=== PATIENT | female | born 2005 | race American Indian/Alaskan Native ===

== ENCOUNTER 2024-07-04 14:33 | Emergency (ER) | payer MEDICAID, SELFPAY ==
[2024-07-04 14:47] VITALS: BP 118/74; PULSE 118; RESP 20; TEMP 36.8; O2SAT 98
--- NOTE | 2024-07-04 14:55 | XR_ITS ---
Examination: Complete OB ultrasound greater than 14 weeks Date and time of exam: July 04, 2024 1516 hrs. Indications: Nausea vomiting beginning one week ago Findings: Viable intrauterine single fetus with single amniotic sac presentation cephalic Cardiac motion 145 BPM Placenta anterior grade 0 Umbilical cord insertion seen Amniotic fluid index 16.3 cm Cervix 2.7 cm Ovaries obscured by bowel gas. Composite estimated gestational age based on BPD, head circumference, abdominal circumference, femur length is 26 weeks 4 days Estimated weight 941 g. Survey of intracranial anatomy, spinal anatomy, abdominal anatomy, four-chamber heart performed with no abnormalities identified. Impression: Viable intrauterine gestation cephalic presentation.
[2024-07-04 15:09] LABS: Collection Type, Urine Clean Catch
--- NOTE | 2024-07-04 15:12 | EDNOTE_ITS ---
<Statement entered by Katherine Tyalor MD - 07/05/24 17:07> As co-signing physician, I was present and available for consult prn. I concur with the plan and care as documented by the midlevel provider. ED General RME/HPI General Chief complaint: Nausea/Vomiting/Diarrhea Stated complaint: N/V, CHILLS, SUICIDAL THOUGHTS Time Seen by Provider: 07/04/24 15:11 Arrival date/time: 07/04/24 14:33 CC: Nausea, nasal congestion, thoughts of harming self HPI patient is 6 months G2, P1 who is had persistent nausea with intermittent vomiting as well as nasal congestion. Patient states that she cannot handle it when she is nauseated and cannot sleep because she cannot breathe at night. Patient denies fever vaginal discharge vaginal bleeding, low back pain, low abdominal cramping. Related Data Previous Rx's ?Medication ?Instructions ?Recorded cetirizine 10 mg capsule 10 mg PO HS #10 caps 07/04/24 ondansetron 4 mg disintegrating 4 mg PO Q8H #10 tabs 07/04/24 tablet Allergies Allergy/AdvReac Type Severity Reaction Status Date / Time No Known Allergies Allergy Verified 01/11/23 14:39 Review of Systems Review of Systems Narrative Review of Systems: GEN: No fever, no chills, no weight loss EYES: No discharge, no visual changes, no pain HEENT: No ear pain, no congestion, no sore throat PULM: No shortness of breath, no cough, + congestion CV: No chest pain, no dyspnea on exertion, no palpitations GI: No nausea, no vomiting, no diarrhea, no pain, no constipation : No frequency, no urgency, no dysuria MUSC/SKEL: No joint pain, no back pain SKIN: No rash PSYCH: No hallucinations, no depression, +SI HEME/LYMPH: No easy bleeding or bruising tendencies NEURO: No weakness, no headache Past Medical History Past Medical History NEUROLOGIC: Negative Neurological Disorders CARDIAC: Negative Cardiac Disorders or Congestive Heart Failure RESPIRATORY: Negative Chronic Obstructive Pulmonary Disease (COPD) or Asthma GASTROINTESTINAL: Negative Gastrointestinal Disorders, Hepatitis or Colorectal Cancer GENITOURINARY: Negative Genitourinary Disorders, Renal Disease or Prostate Cancer REPRODUCTIVE: Negative Breast Cancer or Testicular Cancer MUSCULOSKELETAL: Negative Musculoskeletal Disorders or Bone Cancer ENDOCRINE: Negative Endocrine Disorders, Diabetes Mellitus Type 1 or Diabetes Mellitus Type 2 HEMATOLOGIC: Negative Blood Disorders or Sickle Cell Disease OTHER HISTORY: Negative Hospitalization, Autoimmune Disease, Down Syndrome, Developmental Delay, Shingles, Falls, Blood Transfusions, Blood Transfusion Reaction, Anesthesia Reactions, Organ Transplant, Chemotherapy, Radiation Therapy, Hyperbaric Therapy, MRSA, VRSA, Vancomycin-Resistant Enterococci, Human Immunodeficiency Virus (HIV), Chicken Pox, Measles, Mumps, Rubella (Swazi Measles), Pertussis, Clostridium Difficile, Cancer, Breast Cancer, Cervical Cancer, Colorectal Cancer, Lung Cancer, Ovarian Cancer, Prostate Cancer or Testicular Cancer Family History FAMILY HISTORY: Negative Family Psychiatric Problems, Family Respiratory Disorders, Family Cardiac Disorders, Family Gastrointestinal Problems, Family Cancer, Family Surgery or Family Anesthesia Reaction Surgical History SURGICAL: Negative Section or Organ Transplant Social History SMOKING STATUS: Never smoker SUBSTANCE USE: marijuana ED Exam Narrative Physical exam: [General: Tearful, anxious, but not in any acute distress Head normocephalic HEENT: Within acceptable limits Neck is supple nontender Chest equal chest rise nontender to palpation Respiratory: Clear to auscultation no wheezes crackles or rubs CV: Rate rhythm is regular no murmurs rubs or clicks Abdomen is distended secondary to , soft, nontender no masses positive bowel sounds all 4 quadrants Back: No CVA tenderness no spinous process tenderness from cervical spine thoracic and lumbar spine Skin: Intact no petechiae rash induration ulceration or crepitus Extremities: Moving all extremity against resistance cap refill less than 2 seconds neurosensory intact Neuro: Awake alert oriented x3 Glascow coma 15 no focal deficits] Psych: Waffles [id number] between suicidal ideation and no suicide elation does not have any plan. No homicidal ideation. Course Course Course Narrative: Medically cleared for psych eval Quality Measures none Orders Category Date Time Status Bedside Influenza A&B Antigen Test NOW Care 07/04/24 14:56 Completed Consult Integrity Director NOW Care 07/04/24 14:55 Completed Consult Integrity Director NOW Care 07/04/24 16:12 Active IV [Insert IV] NOW Care 07/04/24 14:55 Active US OB >= 14 weeks Fetus Stat Exams 07/04/24 14:55 Taken Alcohol, Urine Stat Lab 07/04/24 15:01 Completed CBC Stat Lab 07/04/24 15:58 Completed Comprehensive Metabolic Panel Stat Lab 07/04/24 15:58 Completed Drug Screen,Urine Stat Lab 07/04/24 15:01 Completed UA [Urinalysis] Stat Lab 07/04/24 15:01 Completed Urine Culture Stat Lab 07/04/24 15:01 Received Metoclopramide Inj [Reglan Inj] Med 07/04/24 14:55 Discontinued 10 mg IVP X1 ONE Ondansetron Inj [Zofran Inj] Med 07/04/24 15:11 Discontinued 4 mg IV X1 ONE Sodium Chloride 0.9% 1000 ml [Ns] 1,000 ml Med 07/04/24 14:55 Discontinued IV 999 mls/hr Sodium Chloride 0.9% 1000 ml [Ns] 1,000 ml Med 07/04/24 15:12 Discontinued IV 999 mls/hr Vital Signs Vital signs: Vital Signs Temperature 98.3 F 07/04/24 14:47 Pulse Rate 118 H 07/04/24 14:47 Respiratory Rate 20 07/04/24 14:47 Blood Pressure 118/74 07/04/24 14:47 Pulse Oximetry (%) 98 07/04/24 14:47 Oxygen Delivery Method Room Air 07/04/24 14:47 [facility] Patient data External records reviewed:: [facility] previous records Clinical information provided by:: patient Social determinants that could affect healthcare access:: none Patient has the following chronic illnesses:: How is presenting disease/condition affected by chronic disease/condition?: e xacerbated by Evaluation data The following diagnostics were reviewed and interpreted by me:: lab results and radiology exam(s) Lab and/or radiology exams considered but not ordered:: Ultrasound shows a viable IUP with a good heart rate CBC shows no acute leukocytosis anemia thrombocytopenia Influenza B positive Urine is negative for UTI UDS is positive for THC Interpretation Summary: I suspect the persistent nausea, nasal congestion secondary to the influenza are the culprits and causing sleep deprivation which also resulted in high stress loads and intermittent thoughts of depression and/or suicidal ideation. Currently the patient is adamant that she is not suicidal. Nor is homicidal. Medications Medications considered but not ordered:: None Medication administrations:: Medication Administration History Discontinued Medications Sodium Chloride (Ns) 1,000 mls @ 999 mls/hr IV .Q1H1M ONE Stop: 07/04/24 15:55 Last Admin: 07/04/24 15:45 Dose: 999 mls/hr Documented By: LF Sodium Chloride (Ns) 1,000 mls @ 999 mls/hr IV .Q1H1M ONE Stop: 07/04/24 16:12 Last Admin: 07/04/24 15:50 Dose: 999 mls/hr Documented By: LF Metoclopramide HCl (Metoclopramide Inj 5 Mg/Ml Vial 2 Ml) 10 mg IVP X1 ONE; Protocol Stop: 07/04/24 14:56 Last Admin: 07/04/24 15:50 Dose: 10 mg Documented By: LF Ondansetron HCl (Ondansetron Inj 2 Mg/Ml Inj 2 Ml) 4 mg IV X1 ONE; Protocol Stop: 07/04/24 15:12 Last Admin: 07/04/24 15:49 Dose: 4 mg Documented By: RASHAUN None Consultations Consultation(s) initiated? (list below): No Diagnosis Differential Diagnosis ED Complaint MDM: dehydration influenza nausea Most likely diagnosis given after review of the tests above:: dehydration influenza nausea depression Admission Indicated Admission indicated?: not indicated Explain why admission is indicated or not indicated:: Stable for outpatient follow-up Admission Request Was there a request for admission?: No Disposition Plan Disposition Plan: Discharge Discharge Attestation Discharge Attestation: The patient and all family members were given an opportunity to ask questions and understood the discharge instructions. Discharge instructions specifically effects, indications for sooner follow up or return to the emergency department, and the expected course of current diagnosis. Patient condition: Stable Medical Decision Making Differential Diagnosis Differential Diagnosis: dehydration influenza nausea Lab Data 07/04/24 15:58 07/04/24 15:58 Labs: Lab Results 07/04/24 07/04/24 Range/Units 15:01 15:58 WBC 6.7 (4.5-11.0) Thou/mm3 RBC 3.61 L (4.00-5.20) Miln/mm3 Hgb 11.2 L (12.0-16.0) g/dL Hct 32.3 L (36.0-46.0) % MCV 90 (80-100) fL MCH 31.0 (25.0-35.0) pg MCHC 34.7 (31.0-37.0) g/dl RDW Std Deviation 41.2 (36.4-46.3) fL Plt Count 195 (140-440) Thou/mm3 Neut % (Auto) 80 (37-80) % Lymph % (Auto) 11 (10-50) % [place] % (Auto) 7 (0-12) % Eos % (Auto) 0 (0-10) % Baso % (Auto) 0 (0-2.5) % Neut # (Auto) 5.4 (1.8-7.7) Thou/mm3 Lymph # (Auto) 0.8 L (1.0-4.8) Thou/mm3 [place] # (Auto) 0.5 (0.0-0.8) Thou/mm3 Eos # (Auto) 0.0 (0.0-0.5) Thou/mm3 Baso # (Auto) 0.0 (0.0-0.2) Thou/mm3 Immature Gran # (Auto) 0.07 H (0.00-0.00) Thou/mm3 Absolute Nucleated RBC 0.00 (0.00-0.00) Thou/mm3 Immature Gran % 1 H (0-0) % Nucleated RBC % 0 (0) /100 WBC Sodium 134 L (136-145) mMol/L Potassium 3.4 (3.4-5.1) mMol/L Chloride 100 (98-107) mMol/L Carbon Dioxide 22.9 (20.0-31.0) mMol/L Anion Gap 11 (7-16) BUN < 5 L (9-23) mg/dL Creatinine 0.5 L (0.6-1.3) mg/dL Estim Creat Clear Calc Not Performed. eGFR > 60 (60 - ) See Note BUN/Creatinine Ratio 10 L (12-20) Ratio Glucose 102 (74-106) mg/dL Calculated Osmolality 265 L (275-295) Calcium 8.5 (8.3-10.6) mg/dL Corrected Calcium 8.5 (8.5-10.1) mg/dL Total Bilirubin 0.6 (0.3-1.2) mg/dL AST 15 (0-34) U/L ALT 15 (10-49) U/L Alkaline Phosphatase 141 H (46-116) U/L Total Protein 6.8 (5.7-8.2) gm/dL Albumin 4.0 (3.5-5.0) gm/dL Globulin 2.8 (2.3-3.5) gm/dL Albumin/Globulin Ratio 1.4 (1.2-2.2) Ur Collection Type Clean Catch Urine Color Yellow (Lt Yel-Yel) Urine Clarity Hazy (Clear/Hazy) Urine pH 6.5 (5.0-7.0) Ur Specific [place] 1.034 (1.001-1.035) Urine Protein 2+ A (Neg - Trace) Urine Glucose (UA) Negative (Negative) Urine Ketones 4+ A (Negative) Urine Blood Negative (Negative) Urine Nitrite Negative (Negative) Urine Bilirubin 1+ A (Negative) Urine Urobilinogen (Auto) 6.0 (0.0-1.0) mg/dL Ur Leukocyte Esterase Positive (Negative) Urine RBC 4 H (0-3) /hpf Urine WBC 5 (0-5) /hpf Ur Squamous Epith Cells 10 H (0-5) /hpf Urine Bacteria Rare (None) Urine Opiates Screen Negative (Negative) Urine Fentanyl Screen Negative (Negative) Ur Barbiturates Screen Negative (Negative) U Amphetamin/Meth Scrn Negative (Negative) U Benzodiazepines Scrn Negative (Negative) U Cocaine Metab Screen Negative (Negative) U Marijuana (THC) Screen Positive A (Negative) Urine Alcohol Negative (Negative) Discharge Plan Plan Patient Disposition: HOME (Self Care) Patient condition on transfer: Stable Prescriptions/Referrals Prescriptions/Med Rec: New cetirizine 10 mg capsule 10 mg PO HS Qty: 10 0RF ondansetron 4 mg tablet,disintegrating 4 mg PO Q8H Qty: 10 0RF Problem List Clinical Impression: , Influenza B, Dehydration, Congested nose, Nausea, Depression Patient/Caregiver Discharge Instructions Education Materials: Adapting to Second ..., Depression: Tips to Help Yourself, ED Influenza (Adult) Print Language: Indonesian Stand Alone Forms: Sarah Award Info., Work/School Release, Patient Portal Info Letter PA/PERSONAL VEHICLE ADVISOR Supervising Physician PA/PERSONAL VEHICLE ADVISOR Supervising Physician: Alexx Rosales ENP
[2024-07-04 15:15] LABS: Bacteria,Urine Rare; Bilirubin,Urine 1+ (Negative); Blood,Urine Negative (Negative); Color,Urine Yellow (Lt Yel-Yel); Glucose, Urine Negative (Negative); Ketones,Urine 4+ (Negative); Leukocyte Esterase,Urine Positive (Negative); Nitrite,Urine Negative (Negative); PH,Urine 6.5 (5.0-7.0); Protein,Urine 2+ (Neg - Trace); RBC,Urine 4 /hpf (0-3); Specific Gravity,Urine 1.034 (1.001-1.035); Squamous Epithelial Cell,Urine 10 /hpf (0-5); WBC,Urine 5 /hpf (0-5)
[2024-07-04 15:29] LABS: Alcohol, Urine Negative (Negative); Amphetamine/Methamp Scrn,U Negative (Negative); Barbiturate Screen,Urine Negative (Negative); Benzodiazepines Screen,Urine Negative (Negative); Benzoylecgonine Screen, Ur Negative (Negative); Clarity,Urine Hazy (Clear/Hazy); Fentanyl Screen,Urine Negative (Negative); Opiate Screen,Urine Negative (Negative); THC Screen,Urine Positive (Negative)
--- NOTE | 2024-07-04 15:33 | PC.NURSE ---
US AT BEDSIDE FOR PORTABLE X-RAY
[2024-07-04] MEDS: SODIUM CHLORIDE 0.9% 1000 ML 1,000 ML 999 ML IV ×2 (15:45→15:50)
[2024-07-04] MEDS: ONDANSETRON INJ 2 MG/ML INJ 2 ML 4 MG IV (15:49)
[2024-07-04] MEDS: METOCLOPRAMIDE INJ 5 MG/ML VIAL 2 ML 10 MG IVP (15:50)
[2024-07-04 16:06] LABS: Basophils % (Auto) 0 % (0-2.5); Eosinophils % (Auto) 0 % (0-10); Hematocrit 32.3 % (36.0-46.0); Hemoglobin 11.2 g/dL (12.0-16.0); Immature Granulocytes % (Auto) 1 % (0-0); Immature Granulocytes Auto 0.07 Thou/mm3 (0.00-0.00); Lymphocytes # (Auto) 0.8 Thou/mm3 (1.0-4.8); Lymphocytes % (Auto) 11 % (10-50); Mean Corpuscular HGB Conc 34.7 g/dl (31.0-37.0); Mean Corpuscular Volume 90 fL (80-100); Monocytes # (Auto) 0.5 Thou/mm3 (0.0-0.8); Monocytes % (Auto) 7 % (0-12); Neutrophils # (Auto) 5.4 Thou/mm3 (1.8-7.7); Neutrophils % (Auto) 80 % (37-80); Nucleated Red Blood Cell % 0 /100 WBC (0); Platelet Count 195 Thou/mm3 (140-440); RDW Standard Deviation 41.2 fL (36.4-46.3); Red Blood Count 3.61 Miln/mm3 (4.00-5.20); White Blood Count 6.7 Thou/mm3 (4.5-11.0)
[2024-07-04 16:30] LABS: Alanine Aminotransferase 15 U/L (10-49); Albumin/Globulin Ratio 1.4 (1.2-2.2); Alkaline Phosphatase 141 U/L (46-116); Anion Gap 11 (7-16); Aspartate Amino Transferase 15 U/L (0-34); BUN/Creatinine Ratio 10 Ratio (12-20); Bilirubin,Total 0.6 mg/dL (0.3-1.2); Blood Urea Nitrogen < 5 mg/dL (9-23); Calcium 8.5 mg/dL (8.3-10.6); Calcium (Corrected) 8.5 mg/dL (8.5-10.1); Carbon Dioxide 22.9 mMol/L (20.0-31.0); Chloride 100 mMol/L (98-107); Creatinine (Component) 0.5 mg/dL (0.6-1.3); Globulin 2.8 gm/dL (2.3-3.5); Glucose 102 mg/dL (74-106); Osmolality,Calculated 265 (275-295); Potassium 3.4 mMol/L (3.4-5.1); Sodium 134 mMol/L (136-145); Total Protein 6.8 gm/dL (5.7-8.2); eGFR > 60 See Note
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
[2024-07-04 17:48] VITALS: BP 119/71; PULSE 100; RESP 18; TEMP 36.9; O2SAT 99
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
== END 2024-07-04 18:27 | disposition home or self-care (01) ==
PROVIDERS: Nurse Practitioner Primary Care; Emergency Provider Emergency Medicine
DX: O99.891 Other specified diseases and conditions complicating pregnancy (principal); J10.1 Influenza due to other identified influenza virus with other respiratory manifestations; O99.342 Other mental disorders complicating pregnancy, second trimester; F32.A Depression, unspecified; E86.0 Dehydration; Z3A.26 26 weeks gestation of pregnancy
CPT/HCPCS: 36415; 76805; 80053; 80307; 80320; 81001; 84702; 85025; 86900; 86901; 87086; 87400; 90839; 96374; 96375; 99284; J2405; J2765; J7030; G0480

== ENCOUNTER 2024-07-20 13:51 | Observation (INO) | payer MEDICAID, SELFPAY ==
[2024-07-20] VITALS (7 sets, daily range): BP systolic 104–109; BP diastolic 55–67; PULSE 86–102; RESP 18–99; TEMP 36.6; BMI 22.3
== END 2024-07-20 15:40 | disposition home or self-care (01) ==
PROVIDERS: Admitting Provider Specialist; Visit Provider Specialist
DX: O47.02 False labor before 37 completed weeks of gestation, second trimester (principal); Z3A.27 27 weeks gestation of pregnancy
CPT/HCPCS: 59025; 59899

== ENCOUNTER 2024-10-03 11:20 | Inpatient (IN) | payer MEDICAID, SELFPAY ==
[2024-10-03] VITALS (15 sets, daily range): BP systolic 114–139; BP diastolic 68–87; PULSE 60–90; RESP 16–99; TEMP 36.5–37.1; O2SAT 98–99; BMI 25.2
--- NOTE | 2024-10-03 12:17 | ESHP_ITS ---
RE: CONSTANTINO MALHOTRA : 2005 DATE OF ADMISSION: 10/03/2024 HISTORY OF PRESENT ILLNESS: This is a 19-year-old 2, para 1-0-0-1 with a due date of 10/13/2024 with intrauterine at 38 weeks and 4 days who presents to labor and delivery complaining of contractions. The patient is reported to have a cervical exam of 2 cm, 70, +1 with contractions every 6-7 minutes and a category 1 tracing. The patient denies any leaking or bleeding. She reports normal movement. care was complicated by chlamydia cervicitis. Her most recent chlamydia test on 09/17/2024 was negative. Group B strep is negative. She denies any leaking or bleeding. She reports normal movement. ALLERGIES: NO KNOWN DRUG ALLERGIES. MEDICATIONS: 1. multivitamin 1 p.o. daily. 2. Ferrous sulfate 325 mg one p.o. b.i.d. PAST MEDICAL HISTORY: Chlamydia cervicitis. SOCIAL HISTORY: She denies any alcohol, drug use, or smoking. History of cocaine use in the past with rehab program in 2019. FAMILY HISTORY: Asthma, brother and sister. OBSTETRIC HISTORY: In 03/2020, 40-week normal vaginal delivery, 7 pound 9 ounce male, no complications. PAST SURGICAL HISTORY: Denies. REVIEW OF SYSTEMS: She denies any chest pain, palpitations, cough, fever, shortness of breath, or lower extremity pain. She denies any headache, change in vision or right upper quadrant pain. PHYSICAL EXAMINATION: VITAL SIGNS: Blood pressure is 130/73, heart rate 88, respirations 18, temperature 98.2. Weight 160 pounds. HEENT: Oropharynx and sclerae are clear. LUNGS: Clear to auscultation bilaterally. HEART: Regular rate and rhythm. ABDOMEN: Gravid, term size consistent with estimated weight 7.25 pounds. PELVIC: See RN notes. EXTREMITIES: Nontender. SKIN: No gross rashes or lesion. NEUROLOGIC: No focal deficit. ASSESSMENT AND PLAN: Intrauterine at 38 weeks and 4 days, early labor anticipate spontaneous vaginal delivery. Informed consent was obtained. The patient was made aware of the risks, complications, alternatives, and benefits of the proposed procedure and she agrees. She is aware of the risk of operative vaginal delivery and delivery and agrees with these modes of delivery if indicated. DT: 11:52:57 TT: 12:15:00 Ref: [id number] - TID: [id number] MTDD
[2024-10-03 14:22] LABS: Basophils # (Auto) 0.1 Thou/mm3 (0.0-0.2); Basophils % (Auto) 1 % (0-2.5); Eosinophils # (Auto) 0.1 Thou/mm3 (0.0-0.5); Eosinophils % (Auto) 1 % (0-10); Hematocrit 30.8 % (36.0-46.0); Hemoglobin 10.2 g/dL (12.0-16.0); Immature Granulocytes % (Auto) 1 % (0-0); Immature Granulocytes Auto 0.08 Thou/mm3 (0.00-0.00); Lymphocytes # (Auto) 1.9 Thou/mm3 (1.0-4.8); Lymphocytes % (Auto) 17 % (10-50); Mean Corpuscular HGB Conc 33.1 g/dl (31.0-37.0); Mean Corpuscular Hemoglobin 27.1 pg (25.0-35.0); Mean Corpuscular Volume 82 fL (80-100); Monocytes # (Auto) 0.9 Thou/mm3 (0.0-0.8); Monocytes % (Auto) 8 % (0-12); Neutrophils # (Auto) 8.1 Thou/mm3 (1.8-7.7); Neutrophils % (Auto) 73 % (37-80); Nucleated Red Blood Cell % 0 /100 WBC (0); Platelet Count 224 Thou/mm3 (140-440); RDW Standard Deviation 42.2 fL (36.4-46.3); Red Blood Count 3.77 Miln/mm3 (4.00-5.20)
[2024-10-03 14:56] LABS: Syphilis Nonreactive (Nonreactive)
[2024-10-03 15:24] LABS: Amphetamine/Metham Scrn,Ur OB Negative (Negative); Benzoylecgonine Screen, Ur OB Negative (Negative); Opiate Screen,Urine OB Negative (Negative); THC Screen,Urine OB Positive (Negative)
[2024-10-03 15:25] LABS: THC U Confirm* See Sep Rpt
--- NOTE | 2024-10-03 16:13 | PD.LDPN ---
Documentation for date of: 10/03/24 OB Labor Progress Note Pain Control Comments: Fentanyl Pelvic Exam Dilation (cm): 8 Effacement (%): 90 station: +2 Amniotic membrane status: Ruptured Comments: clear Contractions Contraction frequency: q 3 min Status status: Category l Assessment and Plan Comments: Anticipate
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
[2024-10-03] MEDS: OXYTOCIN in NS 20 units 20 UNIT/1,000 ML BAG 125 UNIT IV (17:32)
[2024-10-03] MEDS: IBUPROFEN TAB 400 MG TABLET 800 MG PO (17:43)
[2024-10-03] MEDS: BENZO/LANO/ALOE (Dermoplast) 60 GM CAN 1 SPRAY TOP (17:43)
--- NOTE | 2024-10-03 20:19 | PD.LDDELS ---
Data ([place]) Data Hx Section: No : 2 Para: 1 Term: 1 : 0 : 0 Delivery Data ([place]) Labor Data ROM Date: 10/03/24 ROM Time: 16:07 Rupture Type: AROM Amniotic Fluid: Clear Delivery Data EDC: 10/13/24 EDC calculated by:: LMP/early US confirmation Labor Onset Stage 1 Date: 10/03/24 Labor Onset Stage 1 Time: 13:45 Labor Onset Stage 2 Date: 10/03/24 Labor Onset Stage 2 Time: 17:21 Delivery Date: 10/03/24 Delivery Time: 17:27 Gestational age (weeks): 38 Gestational age (days): 4 Placenta Delivery Date: 10/03/24 Placenta Delivery Time: 17:32 Delivered by: Omid Mccoy Delivery nurse: Karely Villegas Other staff at delivery: Nurse Other staff at delivery: Nursery Nurse Other staff at delivery: Nursery Nurse Other staff at delivery: Nurse Other staff at delivery: Cata Mohan Other staff at delivery: Tina Villegas Other staff at delivery: Pattie Avilez Other staff at delivery: Kat Wellington Delivery Method Delivery: Vaginal Delivery Type: Spontaneous Presentation: Vertex Position: OA Anesthesia Type Primary Anesthesia: None Placenta Placenta Delivery: Spontaneous Placenta Cultures Obtained: No Placenta Sent for Examination: No Cord Sample: Cord Blood Obtained Umbilical Cord Nuchal Cord: x1 Additional Procedures None Complications Complications: None [place] Data ([place]) Data Infant Gender: Female Infant Weight Grams: 3255 1 Minute Total: 8 5 Minute Total: 9
--- NOTE | 2024-10-03 20:20 | PD.LDDS ---
DS: Providers Provider Date of admission: 10/03/24 13:55 Primary care physician: Physician No Primary/Family Admitting Provider: Omid Mccoy MD Attending Provider on Admission: Omid Mccoy MD Consults: 10/03/24 18:02 Referral Routine Comment: Attending Provider on DC: Omid Mccoy MD Discharging Provider: Omid Mccoy MD DS: Diagnosis Problem List Completed Was Problem List Reviewed/Reconciled?: Yes Summary/Hosp Course Time Spent with Patient Time attestation: Total time spent providing and/or coordinating discharge services: Exam Vital Signs Temp Pulse Resp BP O2 Del Method 97.7 F 60 20 130/72 Room Air 10/03/24 17:45 10/03/24 18:27 10/03/24 17:45 10/03/24 18:27 10/03/24 17:45 Discharge Plan Plan Patient Disposition: HOME (Self Care) Patient condition on transfer: Stable Prescriptions/Referrals Prescriptions/Med Rec: New ibuprofen 600 mg tablet 600 mg PO Q6H PRN (Reason: pain) Qty: 30 0RF Continued PNV cmb#95-ferrous fumarate-FA [] 28 mg iron- 800 mcg tablet 1 tab PO DAILY Patient Comments: TAKE 1 TABLET BY MOUTH EVERY DAY Referrals: No Primary/Family,Physician [Primary Care Provider] - Patient/Caregiver Discharge Instructions Discharge Activity: activity as tolerated Other Discharge Activity Instructions:: Follow office 6 weeks. Education Materials: After a Vaginal , : Caring for Yourself Print Language: Spanish Activity Restrictions/Additional Instructions: follow up in office in 6 weeks Stand Alone Forms: Sarah Award Info., Patient Portal Info Letter Discharge Order Discharge Orders: Discharge (Routine); Ordered 10/04/24 Ordered By: Omid Mccoy Planned Discharge Date 10/04/24
[2024-10-03 23:46] LABS: Basophils # (Auto) 0.1 Thou/mm3 (0.0-0.2); Basophils % (Auto) 0 % (0-2.5); Eosinophils % (Auto) 0 % (0-10); Hemoglobin 10.1 g/dL (12.0-16.0); Immature Granulocytes % (Auto) 0 % (0-0); Immature Granulocytes Auto 0.07 Thou/mm3 (0.00-0.00); Lymphocytes # (Auto) 1.8 Thou/mm3 (1.0-4.8); Lymphocytes % (Auto) 11 % (10-50); Mean Corpuscular HGB Conc 33.7 g/dl (31.0-37.0); Mean Corpuscular Hemoglobin 26.9 pg (25.0-35.0); Mean Corpuscular Volume 80 fL (80-100); Monocytes # (Auto) 1.1 Thou/mm3 (0.0-0.8); Monocytes % (Auto) 7 % (0-12); Neutrophils # (Auto) 13.6 Thou/mm3 (1.8-7.7); Neutrophils % (Auto) 82 % (37-80); Nucleated Red Blood Cell % 0 /100 WBC (0); Platelet Count 213 Thou/mm3 (140-440); RDW Standard Deviation 40.9 fL (36.4-46.3); Red Blood Count 3.75 Miln/mm3 (4.00-5.20); White Blood Count 16.6 Thou/mm3 (4.5-11.0)
[2024-10-04 04:53] VITALS: BP 123/80; PULSE 68; RESP 19; TEMP 36.9; O2SAT 99
[2024-10-04] MEDS: IBUPROFEN TAB 400 MG TABLET 800 MG PO ×2 (04:59→15:23)
[2024-10-04 07:55] VITALS: BP 101/61; PULSE 74; RESP 16; TEMP 36.7
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
[2024-10-04] MEDS: HYDROcodone/APAP 5/325 TABLET 1 TAB PO (09:20)
--- NOTE | 2024-10-04 10:10 | ESPR_ITS ---
RE: CONSTANTINO MALHOTRA : 2005 DATE OF SERVICE: 10/04/2024 S: day #1, the patient denies any problem or complaints. She is voiding. She is ambulating. She is tolerated regular diet. She is passing flatus. She denies any excessive vaginal bleeding. She denies any dizziness or lightheadedness. She denies any chest pain, palpitations, shortness of breath, or lower extremity pain. O: Vital Signs: Blood pressure 123/80, heart rate 68, respirations 19, temperature 98.4 , and pulse oximetry 99% on room air. Lungs: Clear to auscultation bilaterally. Heart: Regular rate and rhythm. Abdomen: Fundus is firm. Extremities: Nontender. Laboratory Data: Hemoglobin pre-delivery is 10.2, post-delivery is 10.1. A: day #1, status post spontaneous vaginal delivery. P: Discharge home. Discharge instructions given. Follow up in the office in 6 weeks. DT: 07:44:30 TT: 10:08:00 Ref: [id number] - TID: [id number]
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
[2024-10-04 12:20] VITALS: BP 111/72; PULSE 76; RESP 18; TEMP 36.8
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
--- NOTE | 2024-10-04 15:12 | PC.SS ---
Written CWS report submitted electronically to CWS. Copy of report placed in patient's chart.
[2024-10-04 16:00] VITALS: BP 98/57; PULSE 83; RESP 16; TEMP 36.7
== END 2024-10-04 19:00 | disposition home or self-care (01) | DRG 560 ==
LOC: S4SX 17:54 → S4NX 19:53
PROVIDERS: Admitting Provider Specialist; Visit Provider Specialist
DX: O69.81X0 Labor and delivery complicated by cord around neck, without compression, not applicable or unspecified (principal); Z37.0 Single live birth; Z3A.38 38 weeks gestation of pregnancy
CPT/HCPCS: 36415; 59025; 59409; 80307; 85025; 86780; 86850; 86900; 86901; J2590; A9270